=== PATIENT | female | born 1980 | race Caucasian/White ===

== ENCOUNTER 2022-03-18 07:34 | Day surgery (SDC) | payer OTHER, SELFPAY ==
[2022-03-14 13:52] VITALS: BMI 49.0
--- NOTE | 2022-03-18 08:07 | W.PM.OPSFHP ---
Same Day Surgery H&P Indication for Procedure/HPI DATE OF PROCEDURE: March 18, 2022 CHIEF COMPLAINT/INDICATIONFOR SURGICAL PROCEDURE: Sylvester zeng PREOP DIAGNOSIS: Abdominal pain and constipation PLANNED PROCEDURE: Operation Date: 03/18/22 09:15 Proposed Procedures p Colonoscopy 09561(Not Applicable) - Charbel Salvador MD 01/17/2022 This is a pleasant 41 years old female patient morbidly obese with a current weight of 250 pounds and a BMI 44, patient is referred to my practice with a broad spectrum of symptomatology including but not limited to chronic constipation and she does have a bowel movement every 3 to 4 days.? In addition to right upper quadrant abdominal pain postprandial and started to be diffuse and more now on the left upper quadrant.? Patient describes it as being sharp not being referred and associated with painful bowel movement.? Per her description.? She denies bleeding per rectum or history of colon cancer or change in caliber of the stool.? Patient currently on a keto diet. Previous work-up in the form of CT scan of the abdomen pelvis No evidence of acute pancreatitis and no evidence of enlarged lymph nodes, kidneys shows no evidence of hydronephrosis, bowel caliber is within normal limits without evidence of surrounding stranding or inflammation and appendix is unremarkable.? Small fat-containing periumbilical hernia is noted.? Urinary bladder is grossly unremarkable.? Abdominal aorta is not aneurysmal.? Review of bone windows does not reveal a suspicious osseous lesion.? Lung bases are unrevealing. Also, Ultrasound of the abdomen was obtained and did show 1.? Grossly thoroughness hepatic parenchymal echogenicity suggestive of hepatocellular disease. 2.? Positive sonographic Glasgow sign of unclear clinical significance And there is a history of negative HIDA scan. Lab work was obtained and did show hemoglobin A1c 5.3, sodium 139, potassium 4.1, chloride 104, CO2 23, calcium 9.1, glucose 128, albumin 4.2, total bilirubin 0.3, alkaline phosphatase 75, AST 15, ALT 11. WBC count 4, hemoglobin 11.2, platelets 163 Interim history 03/18/2022 Patient comes today for diagnostic colonoscopy ROS All systems have been reviewed negative except as for the above or per problem list. Medications/Allergies* Home Medications Medication Instructions Recorded Confirmed Type aspirin 325 mg tablet 325 mg PO DAILY 03/14/22 03/14/22 History Allergies/Adverse Reactions Allergy/AdvReac Type Severity Reaction Status Date / Time No Known Allergies Allergy Verified 03/18/22 08:08 Pertinent History/Comorbid Conditions* Social History Smoking and tobacco status: former smoker Pertinent Exam Findings alert, oriented x 3, regular rate & rhythm and procedure specific exam findings (Abdominal exam nontender nondistended soft) Recommendations Surgery/Procedure today (Colonoscopy with possible biopsy) Coding Level of Care 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
[2022-03-18 08:16] VITALS: BP 145/86; PULSE 80; RESP 18; TEMP 36.1; O2SAT 97
[2022-03-18 08:19] LABS: OR HCG Qualitative Urine Negative (Negative)
[2022-03-18] MEDS: sodium chloride 0.9% 1,000 ML 30 ML IV (08:25)
[2022-03-18 09:44] VITALS: BP 100/78; PULSE 84; RESP 18; TEMP 37; O2SAT 94
[2022-03-18 09:51] VITALS: BP 115/78; PULSE 92; RESP 18; O2SAT 96
--- NOTE | 2022-03-18 09:57 | P.ANESASSM_ITS ---
Pre-Anesthetic Assessment Height/Weight: Height 1.6 m Weight 125.645 kg Temp Pulse Resp BP Pulse Ox O2 Del Method 98.6 F 92 18 115/78 96 03/18/22 09:44 03/18/22 09:51 03/18/22 09:51 03/18/22 09:51 03/18/22 09:51 03/18/22 09:51 Preop Diagnosis: Abdominal pain and constipation Operation Date: 03/18/22 09:15 Proposed Procedures p Colonoscopy 37977(Not Applicable) - Charbel Salvador MD Was Beta Branden taken within 24 hours: N/A Was Clonidine taken within 24 hours: N/A Last intake: Intake Last Liquid Date 03/17/22 Last Liquid Time 20:00 Last Solid Date 03/16/22 Last Solid Time 02:00 Social Tobacco and No alcohol previous meth abuse Exam alert, oriented x 3, clear to auscultation bilaterally and regular rate & rhythm Airway Submandibular: within normal limits Cervical ROM: within normal limits Mallampati: Class III Dentition: other (multiple broken, poor dentition) History/ROS No significant history except as noted Pulmonary Upper Respiratory Infection (x2 days ) CV/HEM None reported None reported Hepatic fatty liver GI None reported Metabolic Morbid Obesity [facility] None reported Neuropsych None reported Anesthetic Plan ASA status: 3 Anesthesia: Anesthesia Evaluation and MAC Risk of > 500 ml blood loss (7ml/kg in children): No Medications/Allergies Home Medications Medication Instructions Recorded Confirmed Last Taken Type aspirin 325 mg tablet 325 mg PO DAILY 03/14/22 03/18/22 03/16/22 History Allergies Allergy/AdvReac Type Severity Reaction Status Date / Time No Known Allergies Allergy Verified 03/18/22 08:15 Current Medications Generic Name Dose Route Start Last Admin Trade Name Freq PRN Reason Stop Dose Admin Sodium Chloride 1,000 mls @ 30 mls/hr 03/18/22 08:00 03/18/22 09:49 Sodium Chloride 0.9% IV Infused .Q24H POLLO Infusion PFSH Anesthesia Social History Smoking and tobacco status: former smoker Female Reproductive History Date of last menstrual period: 03/13/22 Data Anesthesia Cardiac Studies: No Data to Display
--- NOTE | 2022-03-18 10:01 | ANE.PACU2 ---
Inpatient post-anesthesia follow up: Airway intact: Yes Vital signs: Temperature 98.6 F Pulse Rate 92 Respiratory Rate 18 Blood Pressure 115/78 Pulse Oximetry 96 Oxygen Delivery Me thod Room Air Oxygen Flow Rate Fraction of Inspir ed Oxygen Hydration adequate: Yes Nausea and vomiting: No Pain level: 0 Mental status: Baseline
== END 2022-03-18 10:10 | disposition home or self-care (01) ==
PROVIDERS: Anesthesiology; PCP Family Medicine; Visit Provider Surgery
PROC: 0DJD8ZZ Inspection of Lower Intestinal Tract, Via Natural or Artificial Opening Endoscopic (ICD-10-PCS; CPT 45378; principal; 2022-03-18 09:15)
DX: R10.9 Unspecified abdominal pain (principal); K57.30 Diverticulosis of large intestine without perforation or abscess without bleeding; E66.01 Morbid (severe) obesity due to excess calories; Z68.42 Body mass index [BMI] 45.0-49.9, adult; Z87.891 Personal history of nicotine dependence
CPT/HCPCS: 45378; 81025; 84703; J2704; J7030